=== PATIENT | female | born 1965 | race Caucasian/White ===

== ENCOUNTER 2023-09-17 19:52 | Emergency (ER) | payer SELFPAY ==
--- NOTE | ~2023-09-17 | XR_ITS ---
Clinical Indication: Chest pain PA and lateral views of the chest: Comparison: None Findings: The lungs are clear, without evidence of focal consolidation or pleural effusion. Cardiome diastinal silhouette is within normal limits. Bones and soft tissues are unremarkable. Impression: Normal chest. Reviewed, dictated and finalized at location . Impression: Normal chest.
[2023-09-17 19:54] VITALS: BP 151/83; PULSE 82; RESP 18; TEMP 36.3; O2SAT 99
[2023-09-17 22:25] VITALS: BP 169/97; PULSE 76; RESP 16; RESP 18; O2SAT 99
[2023-09-17 22:54] VITALS: BP 147/87; PULSE 68; RESP 13; O2SAT 97
[2023-09-17 23:15] VITALS: BP 148/96; PULSE 67; RESP 13; O2SAT 98
--- NOTE | 2023-09-17 23:35 | ED.RECABL ---
HPI - Recheck/Abnormal Lab/Rx General Chief Complaint: Recheck/Abnormal Lab/Rx Stated Complaint: High bp, KEY Time Seen by Provider: 09/17/23 22:42 History of Present Illness HPI narrative: 58-year-old female with reported history of high blood pressure presents to emergency department for high blood pressure, intermittent chest pain and intermittent headaches for the past several weeks. Patient states she has been taking her blood pressure 5 times a day for the past few weeks has been noticed that it is starting to increase. States her highest blood pressure reading was today at 160s over 90s which prompted her to come into the ED. She is also reporting intermittent headaches for the past few weeks as well. Denies injury trauma, vision changes, focal numbness or weakness. She does report a history of headaches at normally present at her temples but states that over the past 2 weeks he seemed to have occurred at the top of her head which is changed. States currently she has a mild headache in her temples. She is also reporting midsternal chest pain she describes as a pressure and states sometimes it feels sharp when she takes a deep breath. this has also been going on for several weeks. She states sometimes she also thinks that it may radiate into her left arm. She denies exertional symptoms. States her chest pain is worse when she activates her chest wall muscles , specifically when she attempts to sit up from a supine position. She endorses a history of costochondritis but is unable to identify if this feels like her costochondritis. She denies history of CAD, diabetes, hyperlipidemia. States she is not currently medicated for hypertension because her blood pressures have improved since she had lost weight and she has not been on any antihypertensives for multiple years. States she has recently gaining weight and therefore her blood pressure starting to increase. She does not have a PCP Nearby as she recently moved to the area. denies smoking. States her maternal grandmother had heart disease. Pt is asking if anxiety may be the cause of her symptoms. Related Data Allergies Allergy/AdvReac Type Severity Reaction Status Date / Time Sulfa (Sulfonamide Allergy Swelling Verified 09/17/23 22:26 Antibiotics) Review of Systems Review of Systems: All systems reviewed & are unremarkable except as noted in HPI and below Exam Narrative: GENERAL: Well-appearing, well-nourished, and in no acute distress. HEAD: Normocephalic, atraumatic. EYES: PERRLA and EOMI. ENT: Nares clear, no rhinorrhea or epistaxis. Mucous membranes moist. NECK: Supple. CHEST: Clear to auscultation. No respiratory distress. minimal tenderness to the chest wall HEART: Regular rate and rhythm. No murmur heard. Normal peripheral pulses. ABDOMEN: Soft, nontender, nondistended, normal active bowel sounds. EXTREMITIES: Normal range of motion. No edema. Negative Homans bilaterally SKIN: Warm, dry, no rash. NEURO: No focal deficits. Alert and oriented x3 Course Vital Signs Vital signs: Vital Signs Temperature 97.4 F L 09/17/23 19:54 Pulse Rate 82 09/17/23 19:54 Respiratory Rate 18 09/17/23 19:54 Blood Pressure 151/83 H 09/17/23 19:54 Pulse Oximetry 99 09/17/23 19:54 Oxygen Delivery Room Air 09/17/23 19:54 Temperature 97.4 F L 09/17/23 19:54 Pulse Rate 90 09/18/23 00:48 Respiratory Rate 16 09/18/23 00:48 Blood Pressure 147/77 H 09/18/23 00:48 Pulse Oximetry 98 09/18/23 00:48 Oxygen Delivery Room Air 09/17/23 19:54 MDM - Recheck/Abnormal Lab/Rx MDM Narrative Medical decision making narrative: 58-year-old female presents to the emergency department for concern for high blood pressure, headache, intermittent chest pain for multiple weeks. Triage vital significant for blood pressure 151/83, otherwise unremarkable. Patient is neurovascularly intact. Exam is significant for the above. Notably tenderness to th
--- NOTE | 2023-09-18 00:11 | ECG_ITS ---
Test Date: 2023-09-18 00:11:16 Measurements Intervals [place] Rate: 76 P: 59 NE: 176 QRS: 53 QRSD: 86 T: 31 QT: 385 QTc: 435 Interpretive Statements SINUS RHYTHM BASELINE ARTIFACT- I, II, III, AVR, AVL NORMAL ECG No previous ECG available for comparison Electronically Signed On 09-18-2023 08:23:05 CDT by Tang Trejo D.O.
[2023-09-18 00:12] VITALS: BP 155/79; PULSE 80; RESP 14; O2SAT 100
[2023-09-18] MEDS: ACETAMINOPHEN 500 MG TABLET 1000 MG PO (00:13)
[2023-09-18] MEDS: SODIUM CHLORIDE 0.9% IV 1,000 ML 999 ML IV CONT (00:15)
[2023-09-18] MEDS: diphenhydrAMINE HCl INJ 50 MG/ML VIAL 25 MG IV PUSH (00:16)
[2023-09-18 00:17] LABS: Basophils Absolute Auto 0.1 K/mm3 (0.0-0.1); Basophils Percent Auto 1.1 % (0.2-1.2); Eosinophils Absolute Auto 0.3 K/mm3 (0-0.3); Eosinophils Percent Auto 4.5 % (0-4.4); Hematocrit 39.4 % (37.0-47.0); Hemoglobin 12.8 g/dL (12.0-15.0); Immature Granulocyte Absolute 0.02 K/mm3 (0.00-0.031); Immature Granulocyte Percent A 0.3 % (0-0.5); Lymphocytes Absolute Auto 2.28 K/mm3 (0.9-3.2); Lymphocytes Percent Auto 30.8 % (18.3-44.2); Mean Corpuscular HGB Conc 32.5 g/dl (32-36); Mean Corpuscular Hemoglobin 28.9 pg (26-34); Mean Corpuscular Volume 88.9 fl (80-100); Mean Platelet Volume 9.8 fl (7.4-10.4); Monocytes Absolute Auto 0.4 K/mm3 (0.1-0.6); Monocytes Percent Auto 5.7 % (2.6-8.5); Neutrophils Absolute Auto 4.3 K/mm3 (1.3-6.7); Neutrophils Percent Auto 57.6 % (45.5-73.1); Platelet Count Result 319 k/mm3 (150-375); Red Blood Count 4.43 M/mm3 (4.2-5.4); Red Cell Distribution Width 13.8 % (11.5-14.5); White Blood Count 7.4 K/mm3 (4.5-10.0)
[2023-09-18] MEDS: PROCHLORPERAZINE EDISYLATE 10 MG/2 ML VIAL IV PUSH (00:17)
[2023-09-18 00:30] LABS: Alanine Aminotransferase 22 U/L (6-35); Albumin Level 4.6 g/dL (3.5-5.1); Alkaline Phosphatase 123 U/L (38-126); Anion Gap 11 mmol/L (4-12); Aspartate Amino Transferase 33 U/L (14-36); Bilirubin,Total 0.6 mg/dL (0.2-1.3); Blood Urea Nitrogen 17 mg/dL (7-17); Carbon Dioxide 24 mmol/L (22-30); Chloride 104 mmol/L (98-107); Estimated CRCL calculation 79 ml/min; Estimated Glomerular Filt Rate > 60; Glucose 88 mg/dL (65-110); Lipase 84 U/L (23-300); Partial Thromboplastin Time 27.9 Seconds (22.3-36.8); Potassium 3.8 mmol/L (3.4-5.0); Sodium 139 mmol/L (137-145)
[2023-09-18 00:38] LABS: D Dimer 0.47 ug/mL (<0.48)
[2023-09-18 00:41] LABS: NT Pro B Type Natriuretic Pept 203 pg/mL (19.9-100); Troponin I < 0.012 ng/mL (0.000-0.034)
[2023-09-18 00:48] VITALS: BP 147/77; PULSE 90; RESP 16; O2SAT 98
== END 2023-09-18 01:08 | disposition home or self-care (01) ==
PROVIDERS: Emergency Provider Physician Assistant
DX: G44.221 Chronic tension-type headache, intractable (principal); M94.0 Chondrocostal junction syndrome [Tietze]; R07.89 Other chest pain; I10 Essential (primary) hypertension
CPT/HCPCS: 36415; 71046; 80053; 83690; 83880; 84484; 85025; 85380; 85610; 85730; 93005; 96361; 96374; 96375; 99284; A9270; J0780; J1200; J7030